=== PATIENT | female | born 1990 | race African-American/Black ===

== ENCOUNTER 2017-05-25 23:42 | Emergency (ER) | payer OTHER ==
[~2017-05-25] VITALS: Ht 170.2 cm; Wt 63.9 kg
[2017-05-26 00:20] VITALS: BP 112/67
== END 2017-05-26 04:15 | disposition home or self-care (01) ==
LOC: ER 23:42 → L&D 05-26 02:36
PROVIDERS: ADMIT Specialist; ATTEND Specialist
DX: O9A.212 Injury, poisoning and certain other consequences of external causes complicating pregnancy, second trimester (principal); S09.90XA Unspecified injury of head, initial encounter; S39.012A Strain of muscle, fascia and tendon of lower back, initial encounter; S66.911A Strain of unspecified muscle, fascia and tendon at wrist and hand level, right hand, initial encounter; V89.2XXA Person injured in unspecified motor-vehicle accident, traffic, initial encounter; Y92.410 Unspecified street and highway as the place of occurrence of the external cause; Z3A.25 25 weeks gestation of pregnancy
CPT/HCPCS: 73090; 76805; 99281; G0378